=== PATIENT | male | born 2000 | race Hispanic/Latino ===

== ENCOUNTER 2022-01-14 07:13 | Emergency (ER) | payer OTHER, SELFPAY ==
[2022-01-14] MEDS ORDERED: Lidocaine 2% 20 ml MDV ONE (08:00)
[2022-01-14] MEDS ORDERED: Bacitracin 1 PK ONE (08:03)
[2022-01-14] MEDS ORDERED: Boostrix 0.5 ML (Tdap) VIAL ONE (08:03)
[2022-01-14] MEDS ORDERED: Cephalexin 500 MG CAP ONE (08:22)
== END 2022-01-14 08:35 | disposition home or self-care (01) ==
LOC: MADERS 07:13
DX: S61.212A Laceration without foreign body of right middle finger without damage to nail, initial encounter (principal); W26.8XXA Contact with other sharp object(s), not elsewhere classified, initial encounter; Y92.69 Other specified industrial and construction area as the place of occurrence of the external cause; Z23 Encounter for immunization
CPT/HCPCS: 12001; 90471; 90715